=== PATIENT | female | born 1945 | race Caucasian/White ===

== ENCOUNTER → 2018-01-25 14:40 | Outpatient (CLI) | payer MEDICARE, OTHER, SELFPAY ==
[2018-01-25 15:17] LABS: Influenza A and B by PCR Rapid Negative (Negative)
== END ==
PROVIDERS: Visit Provider Physician Assistant
DX: R68.89 Other general symptoms and signs (principal); M54.9 Dorsalgia, unspecified
CPT/HCPCS: 87086; 87400

== ENCOUNTER → 2018-01-25 15:04 | Outpatient (CLI) | payer MEDICARE, OTHER, SELFPAY ==
[2018-01-25 16:14] LABS: Alanine Aminotransferase 30 IU/L (9-52); Albumin 3.9 g/dL (3.5-5.0); Albumin Globulin Ratio 1.3 (1.0-2.8); Alkaline Phosphatase 100 U/L (38-126); Aspartate Aminotransferase 25 IU/L (14-36); BUN Creatinine Ratio 16.7 (6-22); Bilirubin Total 0.3 mg/dL (0.2-1.3); Blood Urea Nitrogen 10 mg/dL (7-17); Calcium 9.2 mg/dL (8.4-10.2); Carbon Dioxide 28 mmol/L (22-32); Chloride 103 mmol/L (98-107); Estimated Glomerular Filt Rate > 60.0 mL/min (>60); Globulin 2.9 g/dL (1.7-4.1); Glucose 105 mg/dL (80-110); HEMOLYSIS < 15 (0-50); Sodium 141 mmol/L (137-145); Total Protein 6.8 g/dL (6.3-8.2)
== END ==
PROVIDERS: Visit Provider Physician Assistant
DX: R10.9 Unspecified abdominal pain (principal); R68.89 Other general symptoms and signs; M54.9 Dorsalgia, unspecified
CPT/HCPCS: 36415; 80053; 87086; 87400